=== PATIENT | male | born 1980 | race Caucasian/White ===

== ENCOUNTER 2020-04-07 12:36 | Emergency (ER) | payer OTHER, SELFPAY ==
--- NOTE | ~2020-04-07 | XR_ITS ---
EXAMINATION: XR tibia fibula LT 2V EXAM DATE: 04/07/2020 13:32 INDICATION: Initial encounter following injury, with pain of the left leg. TECHNIQUE: Left tibia/fibula frontal and lateral projections obtained and reviewed. There is no prio r study for comparison. FINDINGS: Left tibial and fibular shafts unremarkable. There are no acute fractures or dislocations identified. There is no subcutaneous gas. The soft tissue is unremarkable. There are no radiopaqu e foreign bodies. IMPRESSION: No acute osseous findings. Reviewed, dictated and finalized at location A. N MARKETING ANALYST IMPRESSION: No acute osseous findings.
[2020-04-07 13:04] VITALS: BP 143/85; PULSE 93; RESP 16; TEMP 36.9; O2SAT 97
[2020-04-07 14:00] VITALS: BP 143/85; PULSE 93; RESP 18; TEMP 36.9; O2SAT 97
[2020-04-07] MEDS: HYDROcodone/acetaminophen (*CRX) 5-325 MG TABLET 1 TAB PO (14:53)
[2020-04-07] MEDS: LIDOCAINE HCL 1% LOCAL INJ 20 ML VIAL 10 ML INFILTRATE (14:54)
[2020-04-07] MEDS: TETANUS,DIPHTHERIA,AC PERTUSSIS ADULT (0.5 ML) BOOSTRIX IM (15:46)
--- NOTE | 2020-04-07 15:46 | ED.GENADULT ---
HPI - General Adult General Chief complaint: Extremity Injury, Lower <Mateo Penaloza PA-C - Last Filed: 04/07/20 15:54> Stated complaint: left leg lac <YU Hewitt Last Filed: 04/07/20 15:54> Time Seen by Provider: 04/07/20 13:14 <Mateo Penaloza PA-C - Last Filed: 04/07/20 15:54> Source: patient <YU Hewitt Last Filed: 04/07/20 15:54> Mode of arrival: ambulatory <YU Hewitt Last Filed: 04/07/20 15:54> Limitations: no limitations <YU Hewitt Last Filed: 04/07/20 15:54> History of Present Illness HPI narrative: Patient presents with chief complaint of laceration to the lower left leg over the vo. Patient states he was walking up steps when he gashed his leg on a cement step. Patient states he is not up-to-date on tetanus. He denies any other injuries. <YU Hewitt Last Filed: 04/07/20 15:54> Related Data Allergies/adverse reactions: Allergies Allergy/AdvReac Type Severity Reaction Status Date / Time Penicillins Allergy Mild Anaphylactic Verified 04/07/20 13:08 Shock Careless [place] Allergy Mild POISON MEAGHAN Uncoded 07/25/15 19:38 <YU Hewitt Last Filed: 04/07/20 15:54> Review of Systems Review of Systems: Narrative: CONSTITUTIONAL: Denies fever, chills, or sweats. EYES: Denies visual changes, redness, or discharge. ENT: Denies rhinorrhea, congestion, sore throat, or otalgia. CARDIOVASCULAR: Denies chest pain, palpitations, or edema. RESPIRATORY: Denies cough or dyspnea. GASTROINTESTINAL: Denies abdominal pain, nausea, vomiting, or diarrhea. GENITOURINARY: Denies dysuria or hematuria. SKIN: Reports laceration denies rash or itching. MUSCULOSKELETAL: Denies back pain, joint pain, or myalgia. NEUROLOGIC: Denies headache, numbness, dizziness, or weakness. PSYCHIATRIC: Denies anxiety or depression. <Mateo Penaloza PA-C - Last Filed: 04/07/20 15:54> Exam Narrative: Exam Narrative: GENERAL: Well-appearing, well-nourished. HEAD: Normocephalic, atraumatic. EYES: PERRLA and EOMI. NECK: Supple. No adenopathy or masses. No vertebral tenderness or loss of ROM. CHEST: Clear to auscultation. No respiratory distress. No wheezes rales or rhonchi HEART: Regular rate and rhythm. Normal peripheral pulses. EXTREMITIES: No acute changes in ROM. No edema. SKIN: Approximately 7 cm L-shaped laceration to the anterior aspect of the left vo. There is minimal bleeding. There is retraction of the skin. warm, dry, no rash. NEURO: No focal deficits. Alert and oriented x3. PSYCH: Normal mood and affect. <Mateo Penaloza PA-C - Last Filed: 04/07/20 15:54> Course Vital Signs Vital signs: Vital Signs Temperature 98.5 F 04/07/20 13:04 Pulse Rate 93 04/07/20 13:04 Respiratory Rate 16 04/07/20 13:04 Blood Pressure 143/85 H 04/07/20 13:04 Pulse Oximetry 97 04/07/20 13:04 Temperature 98.5 F 04/07/20 14:00 Pulse Rate 93 04/07/20 14:00 Respiratory Rate 18 04/07/20 14:00 Blood Pressure 143/85 H 04/07/20 14:00 Pulse Oximetry 97 04/07/20 14:00 <Mateo Penaloza PA-C - Last Filed: 04/07/20 15:54> Vital Signs Temperature 98.5 F 04/07/20 13:04 Pulse Rate 93 04/07/20 13:04 Respiratory Rate 16 04/07/20 13:04 Blood Pressure 143/85 H 04/07/20 13:04 Pulse Oximetry 97 04/07/20 13:04 Temperature 98.5 F 04/07/20 14:00 Pulse Rate 93 04/07/20 14:00 Respiratory Rate 18 04/07/20 14:00 Blood Pressure 143/85 H 04/07/20 14:00 Pulse Oximetry 97 04/07/20 14:00 <Ghada Barry MD - Last Filed: 04/07/20 19:08> Procedures Laceration Laceration 1: Site: lower extremity <Mateo Penaloza PA-C - Last Filed: 04/07/20 15:54> Side (If applicable): left <Mateo Penaloza PA-C - Last Filed: 04/07/20 15:54> Size (cm): 7 <Mateo Penaloza PA-C - Last Filed: 04/07/20 15:54> Description: flap (L-shaped) and oth
== END 2020-04-07 16:14 | disposition home or self-care (01) ==
PROVIDERS: Emergency Provider General Practice
DX: S81.812A Laceration without foreign body, left lower leg, initial encounter (principal); W22.8XXA Striking against or struck by other objects, initial encounter; Z23 Encounter for immunization
CPT/HCPCS: 12002; 73590; 90471; 90715; 99283; A9270

== ENCOUNTER 2020-08-27 10:33 | Emergency (ER) | payer OTHER, SELFPAY ==
--- NOTE | ~2020-08-27 | CT_ITS ---
EXAMINATION: CT brain wo con DATE: 08/27/2020 11:13 INDICATION: Headache. TECHNIQUE: Computed tomography (CT) of the head was performed without intravenous contrast. The mA wa s adjusted according to patient size. Iterative reconstruction technique was employed. The dose-lengt h product was 605.33 mGy-cm. COMPARISON: Head CT 01/19/2011 FINDINGS: There is no intracranial hemorrhage, acute infarction, or abnormal intracranial mass lesion . The ventricles are normal in size. There is mucosal thickening in the paranasal sinuses. The orbits are normal. The mastoid air cells are normal. IMPRESSION: 1. Normal brain. Reviewed, dictated and finalized at location B. IMPRESSION: 1. Normal brain.
[2020-08-27 10:51] VITALS: BP 134/81; PULSE 61; RESP 14; TEMP 36.9; O2SAT 97
--- NOTE | 2020-08-27 11:03 | ED.HA ---
HPI - Headache General Chief Complaint: Headache Stated Complaint: headache Time Seen by Provider: 08/27/20 10:52 Source: patient and RN notes reviewed Mode of arrival: ambulatory Limitations: no limitations History of Present Illness HPI Narrative: Patient is 39 years old white male presents with left-sided throbbing headache started yesterday morning. Patient denies any fever, chills, nausea, vomiting, blurry vision. History of migraine headache, usually worse than today,s headache, but this headache lasted over 24 hours which make the patient worried. Patient reports having a new mattress recently with possible chronic neck, also have a lot of stress lately. Headache usually get better on Tylenol, patient received Tylenol yesterday with some improvement, did not receive Tylenol today until he see what is going on. His headache today is 3 out of 10, compared to 7-8 out of 10 usually. Related Data Allergies Allergy/AdvReac Type Severity Reaction Status Date / Time Penicillins Allergy Mild Anaphylactic Verified 04/07/20 13:08 Shock Careless [place] Allergy Mild POISON MEAGHAN Uncoded 07/25/15 19:38 Review of Systems Review of Systems: Narrative: CONSTITUTIONAL: Denies fever, chills, or sweats. EYES: Denies visual changes, redness, or discharge. ENT: Denies rhinorrhea, congestion, sore throat, or otalgia. CARDIOVASCULAR: Denies chest pain, palpitations, or edema. RESPIRATORY: Denies cough or dyspnea. GASTROINTESTINAL: Denies abdominal pain, nausea, vomiting, or diarrhea. GENITOURINARY: Denies dysuria or hematuria. SKIN: Denies rash or itching. MUSCULOSKELETAL: Denies back pain, joint pain, or myalgia. NEUROLOGIC: Headache PSYCHIATRIC: Denies anxiety or depression. Exam Narrative: Exam Narrative: General appearance: Well-developed, well-nourished Skin: Normal color Head: Normocephalic, nontraumatic Eyes: Clear conjunctiva ENT: Oropharynx normal, ears normal, nose normal Neck: Supple, nontender Chest and respiratory: Airway patent, no respiratory distress, no accessory muscle use Heart: Regular rate/rhythm Abdomen: Soft, nontender, no organomegaly, quiet bowel sounds Vascular: Normal peripheral pulses, normal capillary refill. Musculoskeletal: Normal range of motion, nontender back Neurologic: Alert and oriented ?3, AP[employer] TURNER is normal as tested, no gross motor deficit Course Course Emergency Course: Improving Vital Signs Vital signs: Vital Signs Temperature 36.9 C 08/27/20 10:51 Pulse Rate 61 08/27/20 10:51 Respiratory Rate 14 08/27/20 10:51 Blood Pressure 134/81 08/27/20 10:51 Pulse Oximetry 97 08/27/20 10:51 Temperature 36.9 C 08/27/20 10:51 Pulse Rate 59 L 08/27/20 11:40 Respiratory Rate 14 08/27/20 11:40 Blood Pressure 136/90 08/27/20 11:40 Pulse Oximetry 98 08/27/20 11:40 MDM - Headache MDM Narrative Medical decision making narrative: Migraine headache is my concern. Patient had new mattress, increased level of stress, 2 days older than yesterday, without a change lately which high likely the underlying factors of the headache to last over 24 hours. Patient did not take any pain medication today. CT head ordered. Tylenol/ibuprofen ordered Differential Diagnosis Differential diagnosis: Likely migraine, tension headache, subarachnoid hemorrhage and headache Imaging Data Radiologist's impression: Impressions Head CT 08/27/20 11:17 IMPRESSION: 1. Normal brain. Critical Care Time Critical Care Time Critical Care Time: No Discharge Plan Discharge Clinical Impression: Migraine Qualifiers: Migraine type: without aura Status migrainosus presence: without status migrainosus Intractab
[2020-08-27] MEDS: ACETAMINOPHEN 325 MG TABLET 650 MG PO (11:16)
[2020-08-27] MEDS: IBUPROFEN 600 MG TABLET PO (11:16)
[2020-08-27 11:40] VITALS: BP 136/90; PULSE 59; RESP 14; O2SAT 98
[2020-08-27 12:32] VITALS: BP 148/86; PULSE 88; RESP 16; O2SAT 100
== END 2020-08-27 12:33 | disposition home or self-care (01) ==
PROVIDERS: Emergency Provider Emergency Medicine
DX: G43.009 Migraine without aura, not intractable, without status migrainosus (principal)
CPT/HCPCS: 70450; 99284; A9270

== ENCOUNTER 2023-06-18 13:20 | Emergency (ER) | payer OTHER, SELFPAY ==
--- NOTE | 2023-06-18 13:21 | ED.DENTAL ---
HPI - Dental/Oral General Chief complaint: Dental/Oral Stated complaint: right side mouth pain Time Seen by Provider: 06/18/23 13:21 Source: patient Mode of arrival: ambulatory Limitations: no limitations History of Present Illness HPI Narrative: Pillo is a 42-year-old female patient presenting to the clinic today with complaints of right-sided mouth pain x4 days. He reports he is having right upper and lower dental pain. Teeth are fracture indicate to the right upper and lower molars. No fever or chills Related Data Allergies Allergy/AdvReac Type Severity Reaction Status Date / Time Penicillins Allergy Mild Anaphylactic Verified 06/18/23 13:24 Shock Careless [place] Allergy Mild POISON MEAGHAN Uncoded 06/18/23 13:24 Review of Systems Review of Systems: Pertinent positives per HPI. Patient denies any fever, chills, rash, headache, visual changes, dizziness, cough, runny nose, sore throat, shortness of breath, chest pain, palpitations, nausea, vomiting, diarrhea, constipation, abdominal pain, or any urinary issues. PMFSH Comments At the time of my signature, I reviewed and agree with the nursing past medical, surgical, social, and family history. There is no relevant family history pertinent to the patient complaint. Exam Narrative: General: Well-developed, well nourished, in no apparent distress Head: Normocephalic, atraumatic Eyes: Pupils equally round and reactive to light bilaterally, EOM intact, sclera and conjunctive clear, no discharge, lids normal Ears: TMs intact and clear, ear canals clear, no drainage, grossly hearing normal. Nose: Nares patent, no discharge, no inflammation, no sinus tenderness. Mouth: Oropharynx without lesions or masses, poor dentition, MMM. Fractured and decayed right upper and lower posterior molar. Mild gingival swelling. Neck: Supple, trachea midline, no enlargement of anterior or posterior cervical nodes, no thyroid masses or goiter palpable. Cardio: Regular rate and rhythm, s1 and s2 normal, no murmur appreciated. Resp: Clear to auscultation bilaterally anteriorly and posteriorly, no rhonchi, rales, wheezing or rubs Course Course Emergency Course: Portions of this record may have been created with voice recognition software. Level of Care: Express Care Visit Vital Signs Vital signs: Vital signs reviewed MDM - Dental/Oral MDM Narrative Medical decision making narrative: At the time of visit patient is resting comfortably on the exam table. Patient appears to be nontoxic. Plan: I suspect patient has a dental infection to the right upper and lower posterior molars. Prescription for clindamycin and ibuprofen was sent to the pharmacy. Supportive measures were discussed with the patient and they voiced understanding discharge instructions and agrees to treatment plan. Return precautions reviewed Differential Diagnosis Differential diagnosis: Likely gingival abscess, dental caries, toothache, dental abscess, fracture of tooth and aphthous ulcer Discharge Plan Discharge Clinical Impression: Dental infection, Dental caries Patient Disposition: Home, Self-Care Condition: Stable Instructions: Antibiotic Form, Toothache (ED) Additional Instructions: May take ibuprofen as prescribed for pain May take clindamycin as prescribed Follow-up with your dentist as soon as possible Go to the emergency room if symptoms worsen Prescriptions: New clindamycin HCl 300 mg capsule 300 mg PO Q8H 10 Days Qty: 30 0RF ibuprofen 800 mg tablet 800 mg PO Q8H PRN (Reason: pain) 10 Days Qty: 30 0RF Follow-up/Referrals: PHYSICIAN,ARMATURE REWINDER [Primary Care Provider] - Time of Disposition: 13:37 Quality NIHSS Nursing Documentation ED NIHSS nursing documentation: reviewed/agree
[2023-06-18 13:31] VITALS: BP 141/95; PULSE 62; RESP 16; TEMP 37.2; O2SAT 98
== END 2023-06-18 13:45 | disposition home or self-care (01) ==
PROVIDERS: Emergency Provider Nurse Practitioner Family
DX: K04.7 Periapical abscess without sinus (principal); K02.9 Dental caries, unspecified
CPT/HCPCS: 99213; G0463